=== PATIENT | female | born 1965 | race Caucasian/White ===

== ENCOUNTER 2020-06-29 20:08 | Emergency (ER) | payer BC, OTHER ==
[~2020-06-29] VITALS: Ht 162.6 cm; Wt 101.2 kg
== END 2020-06-29 21:03 | disposition home or self-care (01) ==
LOC: ED 20:08
DX: M25.552 Pain in left hip (principal)
CPT/HCPCS: 99283

== ENCOUNTER 2021-04-30 01:39 | Emergency (ER) | payer BC, OTHER ==
[~2021-04-30] VITALS: Ht 162.6 cm; Wt 99.3 kg
[2021-04-30] MEDS ORDERED: CYCLOBENZAPRINE10 MG PO (03:29)
[2021-04-30] MEDS ORDERED: FERROUS SULFAT325 MG PO (03:29)
--- NOTE | 2021-05-01 09:35 | EKG ---
[facility] [address] [facility] [place], [place] [address] Signed Normal sinus rhythm Normal ECG No previous ECGs available Confirmed by KARTHIKEYAN LEE MD ([id number]) on 05/01/2021 9:35:15 AM Electronically Signed By: KARTHIKEYAN LEE MD 05/01/21 0935 PATIENT NAME: DARREL ANDRADE Electrocardiogram DATE OF : 67 PHYSICIAN: KARTHIKEYAN LEE MD REPORT #: [id number] REPORT IS CONFIDENTIAL AND NOT TO BE RELEASED WITHOUT AUTHORIZATION
== END 2021-04-30 03:40 | disposition home or self-care (01) ==
LOC: ED 01:39
DX: M54.6 Pain in thoracic spine (principal); M41.9 Scoliosis, unspecified; D50.9 Iron deficiency anemia, unspecified
CPT/HCPCS: 36415; 71046; 80053; 80503; 84484; 85025; 85379; 93005; 93010; 99284-25

== ENCOUNTER 2023-02-06 11:39 | Emergency (ER) | payer BC, OTHER ==
[~2023-02-06] VITALS: Ht 162.6 cm; Wt 97.0 kg
[~2023-02-06 11:39] MED LIST: CYCLOBENZAPRINE10 MG PO; FERROUS SULFAT325 MG PO
[2023-02-06 14:10] LABS: BASOPHILS 0.1 % (0-2); HEMATOCRIT 35.4 % (35.0-50.0); HEMOGLOBIN 10.6 g/dL (12.0-18.0); LYMPHOCYTES 7.4 % (24-44); MCH 21.7 (27-36); MCHC 29.9 g/dl (30-36); MCV 72.8 fl (81-99); MONOCYTES 3.2 % (0-12); NEUTROPHILS 89.3 % (39-80); PLATELET COUNT 410 K/uL (140-440); RBC 4.87 M/ul (4.3-5.7)
[2023-02-06 14:23] LABS: ALBUMIN 3.8 g/dL (3.4-5.0); ALBUMIN/GLOBULIN RATIO 1.03 (1.1-2.4); ANION GAP 10.2 (7-21); BILIRUBIN, TOTAL 0.3 ng/dL (0.2-1.0); BUN/CREATININE RATIO 18.18 (6.0-28.6); CALCIUM 9.4 mg/dL (8.5-10.1); CREATININE, SERUM 0.88 mg/dL (0.55-1.02); POTASSIUM 4.2 mmol/L (3.5-5.1); PROTEIN, TOTAL 7.5 g/dL (6.4-8.2)
[2023-02-06 15:28] VITALS: BP 160/85
== END 2023-02-06 15:35 | disposition home or self-care (01) ==
LOC: ED 11:39
PROVIDERS: Emergency Medicine
DX: R03.0 Elevated blood-pressure reading, without diagnosis of hypertension (principal); D64.9 Anemia, unspecified; B34.9 Viral infection, unspecified; Z79.899 Other long term (current) drug therapy
CPT/HCPCS: 36415; 80053; 85025; 99284; A9270

== ENCOUNTER 2023-07-21 07:23 | Emergency (ER) | payer OTHER ==
[~2023-07-21] VITALS: Ht 162.6 cm; Wt 78.0 kg
--- NOTE | ~2023-07-21 | EKG ---
[facility] [address] [facility] [place], [place] [address] Draft EK completed, results pending confirmation PATIENT NAME: DARREL ANDRADE Electrocardiogram DATE OF : 67 PHYSICIAN: PRELIMINARY REPORT #: [id number] REPORT IS CONFIDENTIAL AND NOT TO BE RELEASED WITHOUT AUTHORIZATION
[~2023-07-21 07:23] MED LIST changes: +CELECOXIB200 MG PO; +HYDROCODON-ACE1 EA10 PO; +MULTI VITAMIN1 EACH PO; +OXYBUTYNIN CHLOR5 MG PO; +ZESTRIL10 MG PO
[2023-07-21 07:53] LABS: BASOPHILS 0.5 % (0-2); EOSINOPHILS 1.5 % (0-6); HEMATOCRIT 24.9 % (35.0-50.0); HEMOGLOBIN 7.3 g/dL (12.0-18.0); MCH 20.1 (27-36); MCHC 29.4 g/dl (30-36); MCV 68.2 fl (81-99); PLATELET COUNT 417 K/uL (140-440); RBC 3.66 M/ul (4.3-5.7); RDW 17.8 (10.5-15.0)
[2023-07-21] MEDS ORDERED: SODIUM CHLORIDE 0.9% 1,000 ML IV PRN (08:00)
[2023-07-21 08:04] LABS: ALBUMIN 3.5 g/dL (3.4-5.0); ALBUMIN/GLOBULIN RATIO 0.97 (1.1-2.4); ANION GAP 15.7 (7-21); BILIRUBIN, TOTAL 0.3 ng/dL (0.2-1.0); BUN/CREATININE RATIO 20.15 (6.0-28.6); CALCIUM 9.1 mg/dL (8.5-10.1); CREATININE, SERUM 1.29 mg/dL (0.55-1.02); MAGNESIUM 1.9 mg/dL (1.8-2.4); POTASSIUM 3.7 mmol/L (3.5-5.1); PROTEIN, TOTAL 7.1 g/dL (6.4-8.2)
[2023-07-21 09:09] LABS: BILIRUBIN, URINE NEGATIVE (negative); BLOOD/HGB, URINE NEGATIVE (Negative); KETONE, URINE NEGATIVE (Negative); LEUK ESTERASE, URINE NEGATIVE (negative); NITRITE, URINE NEGATIVE (negative); PH, URINE 5.5 (5-7)
[2023-07-21 09:19] LABS: BACTERIA, URINE RARE /hpf (negative); CASTS, URINE NONE SEEN \\lpf; COLLECTION TYPE, URINE CLEAN CATCH; CRYSTALS, URINE NONE SEEN (0-1+); EPITHELIAL CELLS, URINE SQUAMOUS 1+ /lpf (0-1+); RED BLOOD CELLS, URINE 0-1 /hpf (0-5); REFLEX CULTURE, URINE No (No); WHITE BLOOD CELLS, URINE 0-1 /HPF (0-5)
[2023-07-21 10:12] VITALS: BP 132/79
== END 2023-07-21 10:14 | disposition home or self-care (01) ==
LOC: ED 07:23
PROVIDERS: Emergency Medicine
DX: R55 Syncope and collapse (principal); Z79.899 Other long term (current) drug therapy
CPT/HCPCS: 36415; 71045; 80053; 81001; 83735; 84484; 85025; 85060; 93005; 93010

== ENCOUNTER 2024-11-05 06:25 | Day surgery (SDC) | payer BC ==
[~2024-11-05] VITALS: Ht 162.6 cm; Wt 101.4 kg
[~2024-11-05 06:25] MED LIST changes: +MIDAZOLAM HCL 5 MG/5 ML VIAL IV PRN; +fentaNYL citrate 100 MCG/2 ML VIAL IV PRN
[2024-11-05 06:42] VITALS: BP 138/80
[2024-11-05] MEDS ORDERED: IRON325 M1 PO (06:46)
[2024-11-05] MEDS ORDERED: MIDAZOLAM HCL 5 MG/5 ML VIAL ONE (06:51)
[2024-11-05] MEDS ORDERED: fentaNYL citrate 100 MCG/2 ML VIAL ONE (06:52)
[2024-11-05] MEDS ORDERED: LIDOCAINE HCL 4% 50 ML BTL TOP SCH (07:00)
[2024-11-05] MEDS ORDERED: LIDOCAINE HCL 1% 5 ML SDV INJ ONE (07:00)
[2024-11-05] MEDS ORDERED: IBLOOD GLUCOSE TEST STRIP 1 EA TEST VI PRN (07:00)
[2024-11-05] MEDS ORDERED: LACTATED RINGER'S 1,000 ML IV SCH (07:00)
--- NOTE | 2024-11-05 08:48 | NUR ---
11/05/24 0848 Kane Rudolph 0837: PT ARRIVED TO PACU VIA STRETCHER. PT ARRIVED ON 3L NC. PT AROUSEABLE AT THIS TIME. REPORT TAKEN FROM CESAR HERNANDEZ. 0840: PT DROWSY BUT ABLE TO ANSWER QUESTIONS WITHOUT DIFFICULTY 0847: PT TITRATED TO RA AT THIS TIME. PT PASSING GAS, DENIES NAUSEA, AND PAIN AT THIS TIME.
[2024-11-05 09:02] VITALS: BP 115/75
--- NOTE | 2024-11-10 10:11 | PATH ---
[facility] [address] [place], [place] [address] Signed SPECIMEN(S): A DUODENAL BIOPSY SPECIMEN(S): B ANTRUM BIOPSY SPECIMEN(S): C PROXIMAL STOMACH BIOPSY SPECIMEN(S): D DISTAL STOMACH BIOPSY SPECIMEN(S): E SIGMOID POLYP SPECIMEN SOURCE: A. DUODENAL BIOPSY B. ANTRUM BIOPSY C. PROXIMAL STOMACH BIOPSY D. DISTAL STOMACH BIOPSY E. SIGMOID POLYP CLINICAL HISTORY: Chronic anemia/proximal stomach submucosal nodule, colon polyp X2 FINAL PATHOLOGIC DIAGNOSIS: A. Duodenum, biopsy: - Benign duodenal mucosa with no significant pathologic abnormality. - No celiac sprue identified by HE stain. - No ulcer, dysplasia, or neoplasm identified. B. Antrum of stomach, biopsy: - Benign gastric mucosa with mild chronic gastritis. - Negative for Helicobacter organisms by immunohistochemistry stain. - No ulcer, dysplasia, or intestinal metaplasia identified. C. Proximal stomach, biopsy: - Benign gastric mucosa with no significant pathologic abnormality. - Negative for Helicobacter organisms by HE stain. - No ulcer, dysplasia, or intestinal metaplasia identified. D. Distal esophagus, biopsy.: - Fragments of benign esophageal squamous mucosa with no intramucosal eosinophils. - Fragment of benign gastric cardia like mucosa. - No ulcer, dysplasia, or intestinal metaplasia identified. E. Sigmoid colon polyp: - Sessile serrated adenoma. - No dysplasia or malignancy identified. [facility] MICROSCOPIC EXAMINATION: Histologic sections of all submitted blocks are examined by light microscopy. PATIENT NAME: GABRIELDARREL ANGUIANO MANOJ PATHOLOGY DATE OF : 67 REPORT #: [id number] PHYSICIAN: SERGIO GATES PCP: STEPHANIE GUTIERREZ PA-C REPORT IS CONFIDENTIAL AND NOT TO BE RELEASED WITHOUT AUTHORIZATION [facility] [address] [place], [place] [address] Signed These findings, together with the gross examination, support the pathologic diagnosis. GROSS DESCRIPTION: A. The specimen, labeled and designated "Rol[place], duodenal biopsy," is received in formalin and consists of two webber soft tissue fragments, ranging from 0.4-0.5 cm. Entirely submitted in (A1). B. The specimen, labeled and designated "Rolstad, antrum biopsy," is received in formalin and consists of two webber soft tissue fragments, ranging from 0.4-0.6 cm. Entirely submitted in (B1). C. The specimen, labeled and designated "Rolstad, proximal stomach biopsy," is received in formalin and consists of two webber soft tissue fragments, ranging from 0.4-1.1 cm. Entirely submitted in (C1). D. The specimen, labeled and designated "Rolstad, distal esophagus, biopsy," is received in formalin and consists of five webber soft tissue fragments, ranging from 0.2-0.4 cm. Entirely submitted in (D1). E. The specimen, labeled and designated "Rolstad, sigmoid polyp," is received in formalin and consists of two webber soft tissue fragments, ranging from 0.3-0.4 cm. Entirely submitted in (E1). VB (under the direct supervision of a pathologist) The Gross Description was prepared using a voice recognition system. The report was reviewed for accuracy; however, sound-alike word errors, addition and/or deletions may occur. If there is any question about this report, please contact Client Services. ADDITIONAL NOTES: Immunohistochemical and/or in situ hybridization studies if performed in this case included appropriate positive controls that reacted as expected. This test was developed and its performance characteristics determined by [facility]. It has not been cleared or approved by the U.S. Food and Drug Administration. The FDA has determined that such clearance or approval is not necessary. This test is used for clinical purposes. It should not be regarded as investigational or for research. [facility] is certified under the Clinical Laboratory Improvement Amendments of 1988 (CLIA) as qualified to perform high complexity clinical laboratory testing. PERFORMING LABORATORY: Technical component was performed by [facility], Sultana Morales, PATIENT NAME: DARREL ANDRADE PATHOLOGY DATE OF : 67 REPORT #: [id number] PHYSICIAN: SERGIO GATES PCP: STEPHANIE GUTIERREZ PA-C REPORT IS CONFIDENTIAL AND NOT TO BE RELEASED WITHOUT AUTHORIZATION [address] [address] [place] [address] (CLIA# [id number]). Professional interpretation was performed by [facility], [address] [place] [id number] (CLIA#: [id number]). Diagnostician: Aubrey Copeland MD Pathologist Electronically Signed 11/10/2024 Copies: ~ PATIENT NAME: DARREL ANDRADE PATHOLOGY DATE OF : 67 REPORT #: [id number] PHYSICIAN: SERGIO GATES PCP: STEPHANIE GUTIERREZ PA-C REPORT IS CONFIDENTIAL AND NOT TO BE RELEASED WITHOUT AUTHORIZATION
--- NOTE | 2024-11-10 16:35 | OR ---
[facility] [address] [place], [place] [address] Signed DATE OF OPERATION: 11/05/2024 SURGEON: Jalen Herrera MD PREOPERATIVE DIAGNOSIS: "Anemia." POSTOPERATIVE DIAGNOSES: 1. Small submucosal nodule proximal stomach; hiatal hernia, unrelated. 2. Two small polyps of sigmoid. PROCEDURES: 1. Esophagogastroduodenoscopy with biopsy. 2. Endoscopic resection of submucosal nodule with snare technique and mucosal approximation with hemoclip, proximal stomach. 3. Total colonoscopy to cecum with cold snare polypectomy x1 and cold morcellation polypectomy x1. ANESTHESIA: Intravenous sedation, fentanyl 150 mcg, Versed 8 mg total. INDICATION: This 58-year-old white woman is a patient of NAUHN Mukherjee. She was referred from endoscopy and colonoscopy on the basis of low-grade anemia. She has had no overt blood per rectum, hematemesis or dysphagia and no family history of colon cancer or esophageal cancer. She never had endoscopic evaluation in the past. She has been prescribed iron supplementation for treatment of her anemia. She is admitted at this time to undergo upper endoscopy and colonoscopy to better characterize the source of her anemia. Quite notably, she has had hysterectomy in 2017 and has no vaginal bleeding. FINDINGS: Upper endoscopy showed a relatively large hiatal hernia, but only mild distal esophagitis and certainly no ulceration. There was a submucosal nodule on retroflexed view in the proximal stomach, which was resected with cold snare technique and mucosal reapproximation with a hemoclip. On colonoscopy, the prep was quite good. Complete and full intubation of the cecum was accomplished. There were two small polyps of the sigmoid, both resected, one with snare, the other with cold morcellation technique. Electronically Signed By: JALEN HERRERA MD 11/10/24 1635 PATIENT NAME: DARREL ANDRADE OPERATIVE REPORT DATE OF : 67 REPORT #: [id number] PHYSICIAN: JALEN HERRERA MD PCP: STEPHANIE GUTIERREZ PA-C REPORT IS CONFIDENTIAL AND NOT TO BE RELEASED WITHOUT AUTHORIZATION [facility] [address] [place], [place] [address] Signed DESCRIPTION OF PROCEDURE: The patient was brought to the endoscopy suite and placed in lateral decubitus position after undergoing topical lidocaine hypopharyngeal anesthesia. She was given intravenous sedation to the point of slurred speech and nystagmus with full cardiopulmonary monitoring. An Olympus video upper endoscope was passed in the hypopharynx. The vocal cords were normal. Scope was advanced down the esophagus, which showed no sign of significant abnormality and certainly no evidence of Sosa's epithelium or neoplasm. Scope was passed in the stomach, which was insufflated with air. Rugal folds were normal. The antrum was normal as was the pylorus. The scope was passed through into the duodenum, which was normal. Biopsies were taken of the duodenum to assess for celiac disease, which is a known cause of anemia. Scope was withdrawn and biopsies then taken of the antrum for both JAMISON and pathologic testing. Retroflexed view was undertaken showing a sizable hiatal hernia. Noted in the proximal stomach was unifocal polyp, which on further inspection was a submucosal nodule. Mucosa overlying the nodule was excised was opened and using a cold snare technique, the underlying firm nodule was excised. Hemoclip was applied to the mucosal defect, although there was no significant bleeding. The nodule was placed in a Pyle net and withdrawn and removed and passed for pathology. The scope was reintroduced into the stomach where the site was hemostatic. Withdrawal of scope to the distal esophagus allowed for biopsy of the distal esophageal mucosa. Further withdrawal showed no findings of note. Plans were then made for colonoscopy. Additional sedation was given and digital rectal examination performed showing no sign of abnormality. The Olympus video colonoscope was passed in the rectum and manipulated throughout the colon. In the sigmoid was a small adenomatous appearing polyp as well as an adjacent possibly hyperplastic polyp. The larger polyp was excised with cold snare technique and the smaller with a cold morcellation technique. Following this, the scope was advanced ultimately to the cecum where full intubation of cecum was accomplished. The scope was then withdrawn and examination throughout showed no sign of other abnormality other than a few scattered diverticula. The area of previous excision showed good hemostasis. Further withdrawal allowed for retroflexed view of the rectum, which was normal. The patient was taken to the recovery room in good condition. 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 No lesion to account for anemia. Colonoscopy showing no sign of malignancy. Polyp excised, unlikely to contribute to anemia in anyway. Electronically Signed By: JALEN HERRERA MD 11/10/24 8338 PATIENT NAME: DARREL ANDRADE OPERATIVE REPORT DATE OF : 67 REPORT #: [id number] PHYSICIAN: JALEN HERRERA MD PCP: STEPHANIE GUTIERREZ PA-C REPORT IS CONFIDENTIAL AND NOT TO BE RELEASED WITHOUT AUTHORIZATION [address] [address] Signed PLAN: Recommend repeat colonoscopy in 10 years. We will review pathology report particularly as regards to duodenal biopsy as it may have some link to her anemia, though it is overall unlikely. She will return to the ongoing care of NAHUN Mukherjee. MD LORENZO Hayden/LYN /[id number] cc: NAHUN Mukherjee Copies: ~ Electronically Signed By: JALEN HERRERA MD 11/10/24 1635 PATIENT NAME: DARREL ANDRADE OPERATIVE REPORT DATE OF : 67 REPORT #: [id number] PHYSICIAN: JALEN HERRERA MD PCP: STEPHANIE GUTIERREZ PA-C REPORT IS CONFIDENTIAL AND NOT TO BE RELEASED WITHOUT AUTHORIZATION
== END 2024-11-05 09:13 | disposition home or self-care (01) ==
LOC: DS 06:25
PROVIDERS: ATTEND Surgery
PROC: 0DBN8ZX Excision of Sigmoid Colon, Via Natural or Artificial Opening Endoscopic, Diagnostic (ICD-10-PCS; 2024-11-05)
PROC: 0DB38ZX Excision of Lower Esophagus, Via Natural or Artificial Opening Endoscopic, Diagnostic (ICD-10-PCS; principal; 2024-11-05 07:30)
PROC: 0DB68ZX Excision of Stomach, Via Natural or Artificial Opening Endoscopic, Diagnostic (ICD-10-PCS; 2024-11-05 07:30)
DX: D64.9 Anemia, unspecified (principal); K29.50 Unspecified chronic gastritis without bleeding; D12.5 Benign neoplasm of sigmoid colon; K44.9 Diaphragmatic hernia without obstruction or gangrene; K20.90 Esophagitis, unspecified without bleeding; K57.30 Diverticulosis of large intestine without perforation or abscess without bleeding; E66.01 Morbid (severe) obesity due to excess calories; Z90.710 Acquired absence of both cervix and uterus; Z90.49 Acquired absence of other specified parts of digestive tract; Z68.38 Body mass index [BMI] 38.0-38.9, adult; Z79.899 Other long term (current) drug therapy
CPT/HCPCS: 99153; C1889; G0500; J2250; J3010; J7121